=== PATIENT | male | born 1985 | race Hispanic/Latino ===

== ENCOUNTER 2019-01-25 14:33 | Outpatient (CLI) | payer OTHER ==
--- NOTE | 2019-01-25 16:17 | RAD ---
RIGHT KNEE THREE VIEWS: 01/25/19 HISTORY: Right knee pain. Internal derangement of the right knee. FINDINGS/IMPRESSION: No fracture, dislocation or bony destruction seen. The technologist note describes patient had electronics in his pocket. This is seen on the exam. POS: CRISSY
== END 2019-01-25 14:34 | disposition home or self-care (01) ==
LOC: BICRAD 14:33
PROVIDERS: ATTEND Family Medicine
DX: M23.91 Unspecified internal derangement of right knee (principal)